=== PATIENT | female | born 1985 | race Caucasian/White ===

== ENCOUNTER 2016-10-07 18:11 | Emergency (ER) | payer MEDICAID ==
[~2016-10-07] VITALS: Ht 160 cm; Wt 82.1 kg
[2016-10-07 22:23] VITALS: BP 130/88
== END 2016-10-07 22:24 | disposition home or self-care (01) ==
LOC: ED 18:11
DX: J30.9 Allergic rhinitis, unspecified (principal); H66.91 Otitis media, unspecified, right ear; Z79.899 Other long term (current) drug therapy